=== PATIENT | female | born 1945 | race Caucasian/White ===

== ENCOUNTER 2020-11-14 14:39 | Observation (INO) ==
[2020-11-14 16:05] LABS: Basophils # (auto) 0.03 K/uL (0-0.2); Basophils % (auto) 0.3 %; Eosinophils # (auto) 0.33 K/uL (0-0.5); Eosinophils % (auto) 3.6 %; Hematocrit (blood only) 43.9 % (37-47); Hemoglobin 14.7 g/dL (12.0-16.0); Immature Granulocytes # (auto) 0.01 K/uL (0.00-0.02); Immature Granulocytes % (auto) 0.1 %; Lymphocytes # (auto) 1.95 K/uL (1.2-3.4); Lymphocytes % (auto) 21.1 %; Mean Corpuscular Hemoglobin 30.5 pg (25-34); Mean Corpuscular Hgb Conc 33.5 g/dL (32-36); Mean Corpuscular Volume 91.1 fL (80-100); Mean Platelet Volume 10.5 fL (7.4-10.4); Monocytes # (auto) 0.46 K/uL (0.11-0.59); Neutrophils # (auto) 6.46 K/uL (1.4-6.5); Neutrophils % (auto) 69.9 %; Platelet Count 366 K/uL (130-400); RDW Coefficient of Variation 13.4 % (11.5-14.5); RDW Standard Deviation 44.4 fL (36.4-46.3); Red Blood Count 4.82 M/uL (4.2-5.4); White Blood Count 9.24 K/uL (4.8-10.8)
[2020-11-14 16:23] LABS: Partial Thromboplastin Ratio 0.9; Partial Thromboplastin Time 23.9 Seconds (21.0-31.0)
[2020-11-14 16:25] LABS: Alanine Aminotransferase 29 U/L (12-78); Albumin Level 3.9 gm/dl (3.4-5.0); Aspartate Aminotransferase 16 U/L (15-37); BUN Creatinine Ratio 21.7 (10-20); Blood Urea Nitrogen 17 mg/dl (7-18); Calcium 9.8 mg/dl (8.5-10.1); Carbon Dioxide 31 mmol/L (21-32); Chloride 106 mmol/L (98-107); Creatinine Clr Calc Pharmacy 58.2 ml/min; Est GFR (African American) 84.2 ml/min; Est GFR (Non-African American) 72.6 ml/min; Glucose 99 mg/dl (70-99); Lipase 140 U/L (73-393); Potassium 3.8 mmol/L (3.5-5.1); Sodium 142 mmol/L (136-145)
[2020-11-14 16:30] LABS: Alkaline Phosphatase 61 U/L (45-117); Bilirubin,Total 0.3 mg/dl (0.2-1); Total Protein 7.9 gm/dl (6.4-8.2); Troponin I < 0.015 ng/ml (0-0.045)
--- NOTE | 2020-11-14 16:39 | XRay Report ---
XR chest 1V portable CLINICAL HISTORY: Chest Pain COMPARISON STUDY: May 17, 2015 FINDINGS: No pneumothorax. No pleural effusion. No large infiltrates or consolidative lesions are seen. Cardiomediastinal silhouette is within normal limits in size. No significant pulmonary vascular congestion.. Osseous structures: Mild degenerative changes of the spine. IMPRESSION: 1. No acute pulmonary process. ACT 112: Negative or not required by law. The above report was generated using voice recognition software. It may contain grammatical, syntax o r spelling errors. Electronically signed by: Meghan Ulloa DO 11/14/2020 4:37 PM
[2020-11-14] MEDS ORDERED: NITROGLYCERIN SL 0.4 MG/TAB TAB SL STA (17:01)
[2020-11-14] MEDS ORDERED: ASPIRIN CHEW 324 MG PO STA (17:01)
[2020-11-14] MEDS ORDERED: SODIUM CHLORIDE 0.9% 1000ML 1,000 ML IV SCH (17:15)
--- NOTE | 2020-11-14 17:56 | Electrocardiogram Report ---
Test Reason : Blood Pressure : / mmHG Vent. Rate : 069 BPM Atrial Rate : 069 BPM P-R Int : 146 ms QRS Dur : 088 ms QT Int : 422 ms P-R-T Axes : 076 016 029 degrees QTc Int : 452 ms Normal sinus rhythm Possible Left atrial enlargement Nonspecific ST abnormality Abnormal ECG When compared with ECG of 19-MAY-2015 06:55, T wave inversion no longer evident in Anterolateral leads QT has shortened Confirmed by Darryn Sanchez ([id number]) on 11/14/2020 5:56:19 PM Referred By: Confirmed By:Asim Sanchez
--- NOTE | 2020-11-14 18:09 | Emergency Department Note ---
History of Present Illness General Chief Complaint: Chest Pain Stated Complaint: CHEST PAIN Time Seen by Provider: 11/14/20 16:25 History of Present Illness Provider Complaint: chest pain Onset (ago): day(s) 2 Duration: intermittent Onset: during rest Pain Location: substernal Pain Radiation: LUE Severity: moderate Maximum Pain Intensity: 5 Current Pain Intensity: 1 Quality: + aching Relieved By: + nothing Exacerbated By: + nothing Context: no recent illness, no recent surgery, no recent immobilization, no recent travel and no history of DVT/PE Associated symptoms: no nausea, no vomiting, no diaphoresis, no dyspnea, no syncope, no palpitations, no fever, no cough and no leg swelling Home Medications Medication Instructions Recorded Confirmed Type paroxetine HCl 10 mg PO QAM #0 tab 05/21/15 11/14/20 History [place]-3 1 tab PO QAM 02/06/18 11/14/20 History biotin 5,000 mcg SUBLINGUAL QAM 02/06/18 11/14/20 History hydrochlorothiazide 1 tab PO QAM 02/06/18 11/14/20 History Lactobac 40-Bifido 3-S.thermop 1 cap PO QAM 11/14/20 11/14/20 History [Probiotic] aspirin [Aspir-81] 162 mg PO QAM 11/14/20 11/14/20 History cholecalciferol (vitamin D3) 125 mcg PO QAM 11/14/20 11/14/20 History [Vitamin D3] zinc sulfate 25 mg PO QAM 11/14/20 11/14/20 History Allergies Allergy/AdvReac Type Severity Reaction Status Date / Time ibuprofen Allergy Unknown . Verified 11/14/20 16:59 propoxyphene AdvReac Unknown SEVERE Verified 11/14/20 16:59 NAUSEA AND VOMITING tramadol AdvReac Unknown SEVERE Verified 11/14/20 16:59 VOMITING AND NAUESA Past Med/Surg History Medical History Anxiety Arthritis of right hip Broken heart syndrome Chronic back pain Diabetes Hypertension Hypertension Osteoarthritis Right hip pain Takotsubo syndrome Surgical History H/O total hip arthroplasty L History of bilateral tubal ligation History of cardiac cath 2017, NO STENTS @ [facility] FOLLOWS W DR. FARLEY History of section History of colonoscopy History of tooth extraction WISDOM TEETH Hx of cataract surgery LEFT Nausea and vomiting after administration of anesthetic agent Social History Smoking Status: Never smoker Second Hand Exposure: No; Hx Alcohol Use: No Hx Substance Use: No Preferred Language: Greenlandic Communication Ability: Effective Bleach Packer Required: No Beliefs That Will Affect Care: None Current Living Situation: Spouse Feels Safe at Home: Yes Assistive Devices: None Review of Systems A total of 10 systems reviewed and were otherwise negative Physical Exam Vital Signs Vital Signs - 24 hr 11/14/20 14:43 11/14/20 16:58 11/14/20 17:19 Temperature 36.9 C Temperature Source Temporal Artery Scan Pulse Rate 69 Pulse Rate [Apical] 70 69 Pulse Rhythm Regular Pulse Strength Normal Respiratory Rate 20 18 16 Respiratory Effort / Characteristics Non-Labored Spontaneous Respiratory Depth Normal Respiratory Pattern Regular Blood Pressure 183/99 H Blood Pressure [Left Arm] 175/88 H 219/104 H Blood Pressure Mean 127 Blood Pressure Mean [Left Arm] 117 142 Blood Pressure Position Sitting Blood Pressure Position [Left Arm] Sitting Pulse Oximetry 98 99 Oxygen Delivery Method Room Air Room Air Sepsis Recent Fever Within 48 Hours No Sepsis New/Unexplained Change in Mental Status N/A Sepsis Action Taken by Nursing No Action Required Physical Exam GENERAL: He is oriented to person, place, and time. He appears well-developed and well-nourished. He does not appear distressed. HENT: Exam performed. - Head: Normocephalic and atraumatic. - Right Ear: External ear normal. No mastoid tenderness. - Left Ear: External ear normal. No mastoid tenderness. - Mouth/Throat: The oropharynx is clear and moist. No trismus in the jaw. No dental abscesses or uvula swelling. No oropharyngeal exudate or tonsillar a bscesses. EYES: Conjunctivae and EOM are normal. Pupils are equal, round, and reactive to light. Right eye exhibits no discharge. Left eye exhibits no discharge. No scleral icterus. NECK: Normal range of motion. Neck supple. No JVD present. No spinous process tenderness present. No carotid bruit present. No rigidity. No tracheal deviation and normal range of motion present. No Brudzinski's sign and no Kernig's sign noted. CV: Normal rate, regular rhythm, normal heart sounds and intact distal pulses. There is no peripheral edema. Palpable radial pulses bue. PULM/CHEST: Effort normal and breath sounds normal. No respiratory distress. No stridor. He has no wheezes. He has no rales. - Chest Wall: He exhibits no tenderness. ABD: The abdomen is soft. Bowel sounds are normal. He has no distension. No mass is present. There is no tenderness. There is no rebound, no guarding, no Garcia's sign and no tenderness at McBurney's point. Rovsig negative. MUSC/SKEL: Normal range of motion. There is no peripheral edema, tenderness or deformity. LYMPH: No cervical adenopathy. NEURO: He is alert and oriented to person, place, and time. He has normal strength. No cranial nerve deficit or sensory deficit. Coordination and gait normal. GCS eye subscore is 4. GCS verbal subscore is 5. GCS motor subscore is 6. Cerebellar tests wnl. SKIN: Skin is warm and dry. He is not diaphoretic. PSYCH: He has a normal mood and affect. Behavior is normal. Judgment and thought content normal. Course Course 1625: The patient was evaluated in room A12. A complete history and physical exam was performed Cardiac monitoring: An order was placed for continuous cardiac monitoring. The monitor shows a rate of 70 with sinus rhythm 1700: Vital signs stable. Labs and imaging within normal limits. Patient will be admitted to the [facility] team for chest pain rule out ACS. Administered Medications Sodium Chloride (Nss 1000ml) 1,000 mls @ 125 mls/hr IV .Q8H [facility] Stop: 12/14/20 17:14 Last Admin: 11/14/20 17:16 Dose: 125 mls/hr Documented by: [id number] Discontinued Medications Aspirin (Aspirin Chew 324 Mg) 324 mg PO NOW STA Stop: 11/14/20 17:02 Last Admin: 11/14/20 17:12 Dose: 324 mg Documented by: [id number] Nitroglycerin (Nitroglycerin Sl 0.4 Mg/Tab Tab) 0.4 mg SL NOW STA Stop: 11/14/20 17:02 Last Admin: 11/14/20 17:12 Dose: 0.4 mg Documented by: [id number] Medical Decision Making Laboratory Data Result diagrams: 11/14/20 15:50 11/14/20 15:50 Labs: Lab Results 11/14/20 11/14/20 11/14/20 Range/Units 15:50 15:50 15:50 WBC 9.24 (4.8-10.8) K/uL RBC 4.82 (4.2-5.4) M/uL Hgb 14.7 (12.0-16.0) g/dL Hct 43.9 (37-47) % MCV 91.1 (80-100) fL MCH 30.5 (25-34) pg MCHC 33.5 (32-36) g/dL RDW Std Deviation 44.4 (36.4-46.3) fL RDW Coeff of Rosio 13.4 (11.5-14.5) % Plt Count 366 (130-400) K/uL MPV 10.5 H (7.4-10.4) fL Immature Gran % (Auto) 0.1 % Neut % (Auto) 69.9 % Lymph % (Auto) 21.1 % [place] % (Auto) 5.0 % Eos % (Auto) 3.6 % Baso % (Auto) 0.3 % Neut # (Auto) 6.46 (1.4-6.5) K/uL Lymph # (Auto) 1.95 (1.2-3.4) K/uL [place] # (Auto) 0.46 (0.11-0.59) K/uL Eos # (Auto) 0.33 (0-0.5) K/uL Baso # (Auto) 0.03 (0-0.2) K/uL Immature Gran # (Auto) 0.01 (0.00-0.02) K/uL APTT 23.9 (21.0-31.0) Seconds PTT Ratio 0.9 Sodium 142 (136-145) mmol/L Potassium 3.8 (3.5-5.1) mmol/L Chloride 106 (98-107) mmol/L Carbon Dioxide 31 (21-32) mmol/L Anion Gap 5.0 (3-11) BUN 17 (7-18) mg/dl Creatinine 0.80 (0.6-1.2) mg/dl Est Cr Clr Drug Dosing 58.2 ml/min Est GFR ( Amer) 84.2 ml/min Est GFR (Non-Af Amer) 72.6 ml/min BUN/Creatinine Ratio 21.7 H (10-20) Glucose 99 (70-99) mg/dl Calcium 9.8 (8.5-10.1) mg/dl Total Bilirubin 0.3 (0.2-1) mg/dl AST 16 (15-37) U/L ALT 29 (12-78) U/L Alkaline Phosphatase 61 (45-117) U/L Troponin I < 0.015 (0-0.045) ng/ml Total Protein 7.9 (6.4-8.2) gm/dl Albumin 3.9 (3.4-5.0) gm/dl Globulin 4.0 (2.5-4.0) gm/dl Albumin/Globulin Ratio 1.0 (0.9-2) Lipase 140 (73-393) U/L COVID-19 Eval Order 11/14/20 Range/Units 17:20 WBC (4.8-10.8) K/uL RBC (4.2-5.4) M/uL Hgb (12.0-16.0) g/dL Hct (37-47) % MCV (80-100) fL MCH (25-34) pg MCHC (32-36) g/dL RDW Std Deviation (36.4-46.3) fL RDW Coeff of Rosio (11.5-14.5) % Plt Count (130-400) K/uL MPV (7.4-10.4) fL Immature Gran % (Auto) % Neut % (Auto) % Lymph % (Auto) % [place] % (Auto) % Eos % (Auto) % Baso % (Auto) % Neut # (Auto) (1.4-6.5) K/uL Lymph # (Auto) (1.2-3.4) K/uL [place] # (Auto) (0.11-0.59) K/uL Eos # (Auto) (0-0.5) K/uL Baso # (Auto) (0-0.2) K/uL Immature Gran # (Auto) (0.00-0.02) K/uL APTT (21.0-31.0) Seconds PTT Ratio Sodium (136-145) mmol/L Potassium (3.5-5.1) mmol/L Chloride (98-107) mmol/L Carbon Dioxide (21-32) mmol/L Anion Gap (3-11) BUN (7-18) mg/dl Creatinine (0.6-1.2) mg/dl Est Cr Clr Drug Dosing ml/min Est GFR ( Amer) ml/min Est GFR (Non-Af Amer) ml/min BUN/Creatinine Ratio (10-20) Glucose (70-99) mg/dl Calcium (8.5-10.1) mg/dl Total Bilirubin (0.2-1) mg/dl AST (15-37) U/L ALT (12-78) U/L Alkaline Phosphatase (45-117) U/L Troponin I (0-0.045) ng/ml Total Protein (6.4-8.2) gm/dl Albumin (3.4-5.0) gm/dl Globulin (2.5-4.0) gm/dl Albumin/Globulin Ratio (0.9-2) Lipase (73-393) U/L COVID-19 Eval Order Covid19 at [facility] Imaging Data Chest x-ray: Radiologist's impression: Chest X-Ray 11/14/20 15:49 XR chest 1V portable CLINICAL HISTORY: Chest Pain COMPARISON STUDY: May 17, 2015 FINDINGS: No pneumothorax. No pleural effusion. No large infiltrates or consolidative lesions are seen. Cardiomediastinal silhouette is within normal limits in size. No significant pulmonary vascular congestion.. Osseous structures: Mild degenerative changes of the spine. IMPRESSION: 1. No acute pulmonary process. ACT 112: Negative or not required by law. The above report was generated using voice recognition software. It may contain grammatical, syntax or spelling errors. Electronically signed by: Meghan Ulloa DO 11/14/2020 4:37 PM ECG Data Indication: chest pain Rate (beats per minute): 69 Rhythm: normal sinus Findings: no ST depression, no ST elevation and no prolonged QT MDM Narrative 1625: The patient was evaluated in room A12. A complete history and physical exam was performed Cardiac monitoring: An order was placed for continuous cardiac monitoring. The monitor shows a rate of 70 with sinus rhythm 1700: Vital signs stable. Labs and imaging within normal limits. Patient will be admitted to the [facility] team for chest pain rule out ACS. Impression & Plan Chest pain Discharge Plan Visit Data Chief Complaint: Chest Pain Stated Complaint: CHEST PAIN ED Provider: Roland Zhu Discharge Problem: Chest pain Patient Disposition: Being Evaluated by Hospitalist Forms Stand Alone Forms: [facility] Prescriptions Prescriptions: No Action paroxetine HCl 10 mg Tablet 10 mg PO QAM Qty: 0 RF: 0 hydrochlorothiazide 25 mg Tablet 1 tab PO QAM RF: 0 [place]-3 350 mg-235 mg- 90 mg-597 mg Capsule,Delayed Release(Dr/Ec) 1 tab PO QAM RF: 0 biotin 5,000 mcg Tablet, Sublingual 5,000 mcg SUBLINGUAL QAM RF: 0 zinc sulfate 25 mg zinc (110 mg) Tablet 25 mg PO QAM RF: 0 aspirin [Aspir-81] 81 mg Tablet,Delayed Release (Dr/Ec) 162 mg PO QAM RF: 0 cholecalciferol (vitamin D3) [Vitamin D3] 125 mcg (5,000 unit) Tablet 125 mcg PO QAM RF: 0 Probiotic 100 billion cell Capsule 1 cap PO QAM RF: 0 Referrals Referrals: Val Meade MD [Primary Care Provider] - Discharge Problem: Chest pain Qualifiers: Chest pain type: unspecified Qualified Code(s): R07.9 - Chest pain, unspecified
[2020-11-14] MEDS ORDERED: LABETALOL HCL IV 5 MG/ML 20ML IV STA (18:12)
[2020-11-14] MEDS ORDERED: hydrALAZINE HCL 25 MG TAB PO STA (18:17)
--- NOTE | 2020-11-14 18:26 | History & Physical Report ---
Date of Service November 14, 2020 Assessment & Plan (1) Chest pain: Rule out ACS Hypertensive urgency, Uncontrolled HTN Left sided chest pain, radiating towards left scapula and left arm -on and off for past 1-2 days -no shortness of breath, no diaphoresis, + nausea d/t pain -found to be hypertensive in ER, SBP> 200 -received ASA, and nitro -will give labetalol and IV hydralazine prn, admit to PCU for close hemodynamic monitoring, Tele -initial troponin negative, cont. to cycle -EKG w/o sign. ST changes, will repeat -order Echo -hx of Takotsubo [employer] yrs ago, resolved, followed w/ Dr. Mejia at that time -for HTN on HCTZ, PCP Dr. Meade (pt reports haven't seen by PCP in a while) -cont. HCTZ, labetalol, hydralazine prn -check Fasting lipid panel, A1c -NPO after MN -Cardiology consult Anxiety - cont. Paxil DVT ppx: SCDs Code: Full History of Present Illness Chief Complaint: chest pain Primary Care Provider: Val Meade MD Pt is a 75 y/o F w/ hx HTN, anxiety, hx of takotsubo nonischemic cardiomyopathy (resolved, followed with dr. Mejia) who now presents with chest pain. Pt reports she has been having chest pain on and off for past 1 to 2 days. Chest pain is located at her left side, sometimes radiating to her left scapula and left arm. Denies any shortness of breath or diaphoresis however she does report nausea due to pain. She does not recall doing anything particular when she first noticed her chest discomfort. 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 However she did not notice it was bothering her. She did not notice if anything was making it better or worse, often she will have chest discomfort even at rest. She is a non-smoker. Reports no history of heart disease in her parents or close family. In the ER received aspirin and nitro. Noted that her blood pressure was quite elevated, systolic blood pressure over 200. EKG without significant ST changes. Chest x-ray unremarkable. Initial troponin negative. Prior to her chest pain, patient did not notice any changes in her health status, no fevers, chills, shortness of breath, cough, sick contacts, abdominal pain. Reports that she follows with Dr. Meade for hypertension, however have not seen her in a while, currently taking HCTZ 25 mg daily for that. She does have history of Takotsubo, several years ago, which resolved, at that time was followed by Dr. Mejia with [facility] cardiology. Allergies Allergy/AdvReac Type Severity Reaction Status Date / Time ibuprofen Allergy Unknown . Verified 11/14/20 16:59 propoxyphene AdvReac Unknown SEVERE Verified 11/14/20 16:59 NAUSEA AND VOMITING tramadol AdvReac Unknown SEVERE Verified 11/14/20 16:59 VOMITING AND NAUESA Home Medications Medication Instructions Recorded Confirmed Type paroxetine HCl 10 mg PO QAM #0 tab 05/21/15 11/14/20 History [place]-3 1 tab PO QAM 02/06/18 11/14/20 History biotin 5,000 mcg SUBLINGUAL QAM 02/06/18 11/14/20 History hydrochlorothiazide 1 tab PO QAM 02/06/18 11/14/20 History Lactobac 40-Bifido 3-S.thermop 1 cap PO QAM 11/14/20 11/14/20 History [Probiotic] aspirin [Aspir-81] 162 mg PO QAM 11/14/20 11/14/20 History cholecalciferol (vitamin D3) 125 mcg PO QAM 11/14/20 11/14/20 History [Vitamin D3] zinc sulfate 25 mg PO QAM 11/14/20 11/14/20 History Past Med/Surg History Medical History Anxiety Arthritis of right hip Broken heart syndrome Chronic back pain Diabetes Hypertension Hypertension Osteoarthritis Right hip pain Takotsubo syndrome Surgical History H/O total hip arthroplasty L History of bilateral tubal ligation History of cardiac cath 2017, NO STENTS @ [facility] FOLLOWS W DR. MEJIA History of section History of colonoscopy History of tooth extraction WISDOM TEETH Hx of cataract surgery LEFT Nausea and vomiting after administration of anesthetic agent Family History Mother Dementia Father Epilepsy Social History Smoking Status: Never smoker Second Hand Exposure: No; Hx Alcohol Use: No Hx Substance Use: No Preferred Language: Ghanaian Communication Ability: Effective Animal Daycare Provider Required: No Beliefs That Will Affect Care: None Current Living Situation: Spouse Feels Safe at Home: Yes Assistive Devices: None Review of Systems Review of Systems: All systems reviewed & are unremarkable except as noted in HPI & below Constitutional: no fever and no chills Eyes: no problem reported Ear, Nose, Mouth, Throat: no problem reported Respiratory: no cough and no dyspnea Cardiovascular: + chest pain; no palpitations and no edema Gastrointestinal: no abdominal pain, no nausea and no vomiting Genitourinary: no dysuria and no problem reported Musculoskeletal: no problem reported Integumentary: no problem reported Neurologic: no problem reported Psychiatric: no problem reported Endocrine: no problem reported Hematologic / Lymphatic: no problem reported Allergy / Immunological: no problem reported Physical Exam Constitutional: WD/WN, vitals as above obese Eyes: PERRL, conjunctivae normal, anicteric sclerae ENMT: external ear and nose normal, oropharynx normal Neck: normal visual inspection Respiratory: normal respiratory effort, lungs clear to auscultation no respiratory distress Auscultation: no crackles, no rhonchi and no wheezes Cardiovascular: RRR, no murmur, no edema Heart Sounds: normal S1 and normal S2; no murmur Chest (Breasts): Chest: normal inspection of chest Gastrointestinal (Abdomen): Inspection/Auscultation: abdomen normal to inspection and normal bowel sounds; abdomen not distended Percussion/Palpation: abdomen soft; abdomen nontender, no guarding and abdomen not rigid Musculoskeletal: no cyanosis or clubbing, extremities motor strength 5/5 Skin: no rashes, warm and dry Neurologic: PERRL, EOMI, accommodation nl, no face palsy, no dysarthria moves all extremities Psychiatric: A+Ox3, euthymic affect Genitourinary: no CVA tenderness Lymphatic: no cervical or axillary lymphadenopathy Results & Data Results & Data ([facility]) Vital Signs (Past 12 Hours) Vital Signs Temp Pulse Pulse Resp BP BP Pulse Ox 11/14/20 17:19 69 16 219/104 H 11/14/20 16:58 70 18 175/88 H 99 11/14/20 14:43 36.9 C 69 20 183/99 H 98 Laboratory Results 11/14/20 11/14/20 11/14/20 Range/Units 17:20 17:20 15:50 WBC (4.8-10.8) K/uL RBC (4.2-5.4) M/uL Hgb (12.0-16.0) g/dL Hct (37-47) % MCV (80-100) fL MCH (25-34) pg MCHC (32-36) g/dL RDW Std Deviation (36.4-46.3) fL RDW Coeff of Rosio (11.5-14.5) % Plt Count (130-400) K/uL MPV (7.4-10.4) fL Immature Gran % (Auto) % Neut % (Auto) % Lymph % (Auto) % [place] % (Auto) % Eos % (Auto) % Baso % (Auto) % Neut # (Auto) (1.4-6.5) K/uL Lymph # (Auto) (1.2-3.4) K/uL [place] # (Auto) (0.11-0.59) K/uL Eos # (Auto) (0-0.5) K/uL Baso # (Auto) (0-0.2) K/uL Immature Gran # (Auto) (0.00-0.02) K/uL APTT (21.0-31.0) Seconds PTT Ratio Sodium 142 (136-145) mmol/L Potassium 3.8 (3.5-5.1) mmol/L Chloride 106 (98-107) mmol/L Carbon Dioxide 31 (21-32) mmol/L Anion Gap 5.0 (3-11) BUN 17 (7-18) mg/dl Creatinine 0.80 (0.6-1.2) mg/dl Est Cr Clr Drug Dosing 58.2 ml/min Est GFR ( Amer) 84.2 ml/min Est GFR (Non-Af Amer) 72.6 ml/min BUN/Creatinine Ratio 21.7 H (10-20) Glucose 99 (70-99) mg/dl Calcium 9.8 (8.5-10.1) mg/dl Total Bilirubin 0.3 (0.2-1) mg/dl AST 16 (15-37) U/L ALT 29 (12-78) U/L Alkaline Phosphatase 61 (45-117) U/L Troponin I < 0.015 (0-0.045) ng/ml Total Protein 7.9 (6.4-8.2) gm/dl Albumin 3.9 (3.4-5.0) gm/dl Globulin 4.0 (2.5-4.0) gm/dl Albumin/Globulin Ratio 1.0 (0.9-2) Lipase 140 (73-393) U/L COVID-19 Eval Order Covid19 at [facility] SARS-CoV-2 (PCR) Pending 11/14/20 11/14/20 Range/Units 15:50 15:50 WBC 9.24 (4.8-10.8) K/uL RBC 4.82 (4.2-5.4) M/uL Hgb 14.7 (12.0-16.0) g/dL Hct 43.9 (37-47) % MCV 91.1 (80-100) fL MCH 30.5 (25-34) pg MCHC 33.5 (32-36) g/dL RDW Std Deviation 44.4 (36.4-46.3) fL RDW Coeff of Rosio 13.4 (11.5-14.5) % Plt Count 366 (130-400) K/uL MPV 10.5 H (7.4-10.4) fL Immature Gran % (Auto) 0.1 % Neut % (Auto) 69.9 % Lymph % (Auto) 21.1 % [place] % (Auto) 5.0 % Eos % (Auto) 3.6 % Baso % (Auto) 0.3 % Neut # (Auto) 6.46 (1.4-6.5) K/uL Lymph # (Auto) 1.95 (1.2-3.4) K/uL [place] # (Auto) 0.46 (0.11-0.59) K/uL Eos # (Auto) 0.33 (0-0.5) K/uL Baso # (Auto) 0.03 (0-0.2) K/uL Immature Gran # (Auto) 0.01 (0.00-0.02) K/uL APTT 23.9 (21.0-31.0) Seconds PTT Ratio 0.9 Sodium (136-145) mmol/L Potassium (3.5-5.1) mmol/L Chloride (98-107) mmol/L Carbon Dioxide (21-32) mmol/L Anion Gap (3-11) BUN (7-18) mg/dl Creatinine (0.6-1.2) mg/dl Est Cr Clr Drug Dosing ml/min Est GFR ( Amer) ml/min Est GFR (Non-Af Amer) ml/min BUN/Creatinine Ratio (10-20) Glucose (70-99) mg/dl Calcium (8.5-10.1) mg/dl Total Bilirubin (0.2-1) mg/dl AST (15-37) U/L ALT (12-78) U/L Alkaline Phosphatase (45-117) U/L Troponin I (0-0.045) ng/ml Total Protein (6.4-8.2) gm/dl Albumin (3.4-5.0) gm/dl Globulin (2.5-4.0) gm/dl Albumin/Globulin Ratio (0.9-2) Lipase (73-393) U/L COVID-19 Eval Order SARS-CoV-2 (PCR) Medications Administered CXR IMPRESSION: 1. No acute pulmonary process. Code Status & VTE Plan VTE Prophylaxis Plan VTE Prophylaxis will be ordered: Yes (1) Chest pain Chest pain type: unspecified Qualified Code(s): R07.9 - Chest pain, unspecified
[2020-11-14] MEDS ORDERED: hydrALAZINE HCL 20 MG/ML VIAL IV PRN (22:08)
[2020-11-14] MEDS ORDERED: POLYETHYLENE (MIRALAX) 17 GM PACK PO PRN (22:08)
[2020-11-14] MEDS ORDERED: ACETAMINOPHEN 325 MG TAB PO PRN (22:08)
[2020-11-14] MEDS ORDERED: ONDANSETRON INJ 2 MG/ML 2 ML VIAL IV PRN (22:08)
[2020-11-14] MEDS ORDERED: NITROGLYCERIN SL 0.4 MG/TAB TAB SL PRN (22:08)
[2020-11-14] MEDS: HEPARIN SOD 5,000 UNIT/0.5 ML VIAL SQ SCH (23:31)
[2020-11-15 04:22] LABS: Hematocrit (blood only) 40.3 % (37-47); Hemoglobin 13.3 g/dL (12.0-16.0); Mean Corpuscular Hemoglobin 30.2 pg (25-34); Mean Corpuscular Volume 91.4 fL (80-100); Mean Platelet Volume 10.4 fL (7.4-10.4); Platelet Count 339 K/uL (130-400); RDW Coefficient of Variation 13.5 % (11.5-14.5); Red Blood Count 4.41 M/uL (4.2-5.4)
[2020-11-15 04:39] LABS: BUN Creatinine Ratio 23.5 (10-20); Blood Urea Nitrogen 18 mg/dl (7-18); Calcium 9.1 mg/dl (8.5-10.1); Carbon Dioxide 30 mmol/L (21-32); Chloride 109 mmol/L (98-107); Creatinine Clr Calc Pharmacy 59.6 ml/min; Est GFR (African American) 86.8 ml/min; Est GFR (Non-African American) 74.9 ml/min; Glucose 106 mg/dl (70-99); Potassium 3.4 mmol/L (3.5-5.1); Sodium 140 mmol/L (136-145)
[2020-11-15 04:43] LABS: Chol HDL Ratio 5; Cholesterol 183 mg/dl (0-200); HDL Cholesterol 36 mg/dl; LDL Cholesterol Calculated 98 mg/dl; Triglycerides 243 mg/dl (0-150); Troponin I < 0.015 ng/ml (0-0.045); VLDL Cholesterol 49 mg/dl
[2020-11-15] MEDS: HEPARIN SOD 5,000 UNIT/0.5 ML VIAL SQ SCH ×2 (06:36→13:04)
[2020-11-15 07:27] LABS: Estimated Average Glucose 131 mg/dl; Hemoglobin A1C 6.2 % (4.5-5.6)
[2020-11-15] MEDS ORDERED: ASPIRIN 81 MG ECTAB PO SCH (09:00)
[2020-11-15] MEDS ORDERED: PARoxetine HCL 10 MG TAB PO SCH (09:00)
[2020-11-15] MEDS ORDERED: hydroCHLOROthiazide 25 MG TAB PO SCH (09:00)
--- NOTE | 2020-11-15 09:42 | Electrocardiogram Report ---
Test Reason : Blood Pressure : / mmHG Vent. Rate : 064 BPM Atrial Rate : 064 BPM P-R Int : 158 ms QRS Dur : 094 ms QT Int : 440 ms P-R-T Axes : 074 020 043 degrees QTc Int : 454 ms Normal sinus rhythm Possible Left atrial enlargement Incomplete right bundle branch block Nonspecific T wave abnormality Abnormal ECG When compared with ECG of 14-NOV-2020 14:48, No significant change was found Confirmed by Darryn Sanchez ([id number]) on 11/15/2020 9:41:31 AM Referred By: REFERRED SELF Confirmed By:Asim Sanchez
--- NOTE | 2020-11-15 12:39 | Cardiology Consultation ---
Date of Consultation November 15, 2020 Assessment & Plan (1) Chest pain: EKG x 2, troponin x 3 negative. Unable to walk on treadmill due to hip pain from arthritis. Proceed with dobutamine stress echo. (2) Hypertension: add losartan 25 mg to HCTZ 25 mg. (3) Diabetes: LDL =98 mg/dl. Given DM with Hgb A1C of 6.2%, recommend atorvastatin 10 mg daily. History of Present Illness Attending Physician: Rikki Hayden MD History of Present Illness Keesha Rao is a 75 year old female seen in cardiology consultation for the evaluation of chest pain and high blood pressure. Patient with several days of waxing and waning left chest and arm pain/ left shoulder blade pain. 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 Discomfort completely resolved now. EKG x 2 , Troponin I x 3 all normal. Resting echo with normal wall motion. History is notable for left apical ballooning syndrome cardiomyopathy in 2014 with negative cardiac catheterization then. Notes pedal edema . Recently ate a lot of salty potato chips. No family history of ischemic heart disease. Allergies Allergy/AdvReac Type Severity Reaction Status Date / Time ibuprofen Allergy Unknown . Verified 11/14/20 16:59 propoxyphene AdvReac Unknown SEVERE Verified 11/14/20 16:59 NAUSEA AND VOMITING tramadol AdvReac Unknown SEVERE Verified 11/14/20 16:59 VOMITING AND NAUESA Home Medications Medication Instructions Recorded Confirmed Type paroxetine HCl 10 mg PO QAM #0 tab 05/21/15 11/14/20 History Eagan-3 1 tab PO QAM 02/06/18 11/14/20 History biotin 5,000 mcg SUBLINGUAL QAM 02/06/18 11/14/20 History hydrochlorothiazide 1 tab PO QAM 02/06/18 11/14/20 History Lactobac 40-Bifido 3-S.thermop 1 cap PO QAM 11/14/20 11/14/20 History [Probiotic] aspirin [Aspir-81] 162 mg PO QAM 11/14/20 11/14/20 History cholecalciferol (vitamin D3) 125 mcg PO QAM 11/14/20 11/14/20 History [Vitamin D3] zinc sulfate 25 mg PO QAM 11/14/20 11/14/20 History Patient History Medical History Anxiety Arthritis of right hip Broken heart syndrome Chronic back pain Diabetes Hypertension Hypertension Osteoarthritis Right hip pain Takotsubo syndrome Surgical History H/O total hip arthroplasty L History of bilateral tubal ligation History of cardiac cath 2017, NO STENTS @ [facility] FOLLOWS W DR. FARLEY History of section History of colonoscopy History of tooth extraction WISDOM TEETH Hx of cataract surgery LEFT Nausea and vomiting after administration of anesthetic agent Family History Mother Dementia Father Epilepsy Social History Smoking Status: Never smoker Second Hand Exposure: No; Do You Dip or Chew Tobacco: No; Tobacco Cessation Education Requested by Patient: No Hx Alcohol Use: Yes Alcohol type: beer, wine and hard liquor Hx Substance Use: No Preferred Language: Turkmen Communication Ability: Effective Market Master Required: No Beliefs That Will Affect Care: None Current Living Situation: Spouse Other Information That Helps Us Care for You: No Feels Safe at Home: Yes Safety Concerns: Feels Safe At This Time Assistive Devices: None Review of Systems Review of Systems: All systems reviewed & are unremarkable except as noted in HPI & below Physical Exam Physical Exam: Temp Pulse Resp BP Pulse Ox 36.8 C 64 19 165/87 H 97 11/15/20 11:58 11/15/20 11:58 11/15/20 11:58 11/15/20 11:58 11/15/20 11:58 Constitutional: WD/WN, vitals as above Respiratory: normal respiratory effort, lungs clear to auscultation Cardiovascular: RRR, no murmur, no edema Gastrointestinal (Abdomen): normal bowel sounds, soft, nontender, no hepatosplenomegaly Neurologic: PERRL, EOMI, accommodation nl, no face palsy, no dysarthria Results & Data ([facility]) Vital Signs (Past 12 Hours) Vital Signs Temp Pulse Pulse Resp BP Pulse Ox 11/15/20 11:58 36.8 C 64 19 165/87 H 97 11/15/20 09:15 58 L 11/15/20 07:30 36.8 C 73 20 151/90 H 96 11/15/20 03:13 36.8 C 65 18 148/82 H 96 Laboratory Results Cardiac Enzymes 11/14/20 11/14/20 11/15/20 Range/Units 15:50 22:36 03:55 AST 16 (15-37) U/L Troponin I < 0.015 < 0.015 < 0.015 (0-0.045) ng/ml Coagulation 11/14/20 Range/Units 15:50 APTT 23.9 (21.0-31.0) Seconds Lipids 11/15/20 Range/Units 03:55 Triglycerides 243 H (0-150) mg/dl Cholesterol 183 (0-200) mg/dl HDL Cholesterol 36 mg/dl Cholesterol/HDL Ratio 5 CBC 11/14/20 11/15/20 Range/Units 15:50 03:55 WBC 9.24 8.40 (4.8-10.8) K/uL RBC 4.82 4.41 (4.2-5.4) M/uL Hgb 14.7 13.3 (12.0-16.0) g/dL Hct 43.9 40.3 (37-47) % Plt Count 366 339 (130-400) K/uL Neut # (Auto) 6.46 (1.4-6.5) K/uL Lymph # (Auto) 1.95 (1.2-3.4) K/uL Andrew # (Auto) 0.46 (0.11-0.59) K/uL Eos # (Auto) 0.33 (0-0.5) K/uL Baso # (Auto) 0.03 (0-0.2) K/uL Comprehensive Metabolic Panel 11/14/20 11/15/20 Range/Units 15:50 03:55 Sodium 142 140 (136-145) mmol/L Potassium 3.8 3.4 L (3.5-5.1) mmol/L Chloride 106 109 H (98-107) mmol/L Carbon Dioxide 31 30 (21-32) mmol/L BUN 17 18 (7-18) mg/dl Creatinine 0.80 0.78 (0.6-1.2) mg/dl Glucose 99 106 H (70-99) mg/dl Calcium 9.8 9.1 (8.5-10.1) mg/dl AST 16 (15-37) U/L ALT 29 (12-78) U/L Alkaline Phosphatase 61 (45-117) U/L Total Protein 7.9 (6.4-8.2) gm/dl Albumin 3.9 (3.4-5.0) gm/dl Intake and Output 11/14/20 11/15/20 11/15/20 22:59 06:59 14:59 Intake Total 1000 / 1000 Balance 1000 / 1000 Intake: IV 1000 / 1000 Sodium Chloride 0.9% 1000ML 1, 1000 / 1000 000 ml @ 125 mls/hr IV .Q8H [facility] Rx#:[id number] Other: Other Intake Source NPO Weight 74 kg 74 kg Weight Measurement Method Standing Scale Standing Scale (1) Chest pain Chest pain type: unspecified Qualified Code(s): R07.9 - Chest pain, unspecified
[2020-11-15] MEDS ORDERED: LOSARTAN POTASSIUM 25 MG TAB PO SCH (12:45)
[2020-11-15] MEDS ORDERED: ATORVASTATIN 10 MG TAB PO SCH (13:00)
[2020-11-15] MEDS ORDERED: ATROPINE SULFATE 0.1 MG/ML 10ML SYR IV ONE (14:00)
[2020-11-15] MEDS ORDERED: DOBUTamine HCL 12.5 MG/ML 20 ML VIAL IV ONE (14:00)
[2020-11-15] MEDS ORDERED: METOPROLOL TARTRATE 1 MG/ML VIAL IV ONE (14:00)
--- NOTE | 2020-11-15 14:35 | Communication Note ---
Date of Service: November 15, 2020 Nonischemic dobutamine stress echo. Stable for discharge. Continue HCTZ 25 mg. Losartan 25 mg added. No beta jovani as resting heart rate already in the 50s to 60s. Follow up with primary care provider.
--- NOTE | 2020-11-15 14:48 | Discharge Summary ---
Date of Service November 15, 2020 Admission HPI Per Admitting Provider Pt is a 75 y/o F w/ hx HTN, anxiety, hx of takotsubo nonischemic cardiomyopathy (resolved, followed with dr. Mejia) who now presents with chest pain. Pt reports she has been having chest pain on and off for past 1 to 2 days. Chest pain is located at her left side, sometimes radiating to her left scapula and left arm. Denies any shortness of breath or diaphoresis however she does report nausea due to pain. She does not recall doing anything particular when she first noticed her chest discomfort. 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 However she did not notice it was bothering her. She did not notice if anything was making it better or worse, often she will have chest discomfort even at rest. She is a non-smoker. Reports no history of heart disease in her parents or close family. In the ER received aspirin and nitro. Noted that her blood pressure was quite elevated, systolic blood pressure over 200. EKG without significant ST changes. Chest x-ray unremarkable. Initial troponin negative. Prior to her chest pain, patient did not notice any changes in her health status, no fevers, chills, shortness of breath, cough, sick contacts, abdominal pain. Reports that she follows with Dr. Meade for hypertension, however have not seen her in a while, currently taking HCTZ 25 mg daily for that. She does have history of Takotsubo, several years ago, which resolved, at that time was followed by Dr. Mejia with [facility] cardiology. Admission Exam Per Admitting Provider Constitutional: WD/WN, vitals as above obese Eyes: PERRL, conjunctivae normal, anicteric sclerae ENMT: external ear and nose normal, oropharynx normal Neck: normal visual inspection Respiratory: normal respiratory effort, lungs clear to auscultation no respiratory distress Auscultation: no crackles, no rhonchi and no wheezes Cardiovascular: RRR, no murmur, no edema Heart Sounds: normal S1 and normal S2; no murmur Chest (Breasts): Chest: normal inspection of chest Gastrointestinal (Abdomen): Inspection/Auscultation: abdomen normal to inspection and normal bowel sounds; abdomen not distended Percussion/Palpation: abdomen soft; abdomen nontender, no guarding and abdomen not rigid Musculoskeletal: no cyanosis or clubbing, extremities motor strength 5/5 Skin: no rashes, warm and dry Neurologic: PERRL, EOMI, accommodation nl, no face palsy, no dysarthria moves all extremities Psychiatric: A+Ox3, euthymic affect Genitourinary: no CVA tenderness Lymphatic: no cervical or axillary lymphadenopathy Principal Diagnosis Chest pain Discharge Exam General: A&Ox3 HENT: NCAT, MMM, EOMI Eyes: PERRLA Neck: Supple, normal range of motion CVS: normal rate and rhythm Resp: b/l good breath sounds Abdomen: Soft, ND/NT, +BS Extremities: No c/c/e Neuro: face symmetric, strength grossly equal, no focal deficit Skin: warm and dry, no rashes/lesions/errythema MSK: normal ROM, no joint swelling/erythema Discharge Data Allergies Allergy/AdvReac Type Severity Reaction Status Date / Time ibuprofen Allergy Unknown . Verified 11/14/20 16:59 propoxyphene AdvReac Unknown SEVERE Verified 11/14/20 16:59 NAUSEA AND VOMITING tramadol AdvReac Unknown SEVERE Verified 11/14/20 16:59 VOMITING AND NAUESA Consultations 11/14/20 17:06 ED Decision to Admit Stat 11/14/20 22:08 Consult Cardiology Routine Hospital Course (1) Chest pain: Rule out ACS Hypertensive urgency, Uncontrolled HTN Left sided chest pain, radiating towards left scapula and left arm -Patient presented with chest pain and hypertensive urgency. Cardiology was consulted. Patient had nonischemic dobutamine stress echo patient was discharged on losartan and Lipitor daily and will need to follow-up with cardiology. On the day of discharge patient was doing okay. Hemodynamically patient was doing better. Patient was discharged in stable condition. Anxiety - cont. Paxil Total Time Total Time Spent Total Time Spent (In Minutes): 35 Discharge Plan Discharge Items Patient Disposition: Home - Self-Care Reason For Visit: CP Discharge Diagnosis: Chest pain Hypertension Activity: Resume your previous activity Non-emergency contact: Primary Care Provider Call non-emergency contact if: your symptoms worsen Follow-up/Referrals: Val Meade MD [Primary Care Provider] - (Date & Time 11/21/2020 2:00 PM Provider Val Meade MD Department General Internal Medicine [place], [place] ) Diet: Heart Healthy Addtl Attending Provider Instructions: Follow-up with your primary care physician within 1 week. An appointment has been requested. Start taking losartan 25 mg daily and Lipitor 10 mg daily. Pending Studies at Discharge: No Stand-Alone Forms: [facility] [place], Smoking Cessation Medications and DC Order Prescriptions: New atorvastatin 10 mg Tablet 10 mg PO QAM 30 Days Qty: 30 RF: 0 losartan 25 mg Tablet 25 mg PO QAM 30 Days Qty: 30 RF: 0 Continued paroxetine HCl 10 mg Tablet 10 mg PO QAM Qty: 0 RF: 0 hydrochlorothiazide 25 mg Tablet 1 tab PO QAM RF: 0 Harbeson-3 350 mg-235 mg- 90 mg-597 mg Capsule,Delayed Release(Dr/Ec) 1 tab PO QAM RF: 0 biotin 5,000 mcg Tablet, Sublingual 5,000 mcg SUBLINGUAL QAM RF: 0 zinc sulfate 25 mg zinc (110 mg) Tablet 25 mg PO QAM RF: 0 aspirin [Aspir-81] 81 mg Tablet,Delayed Release (Dr/Ec) 162 mg PO QAM RF: 0 cholecalciferol (vitamin D3) [Vitamin D3] 125 mcg (5,000 unit) Tablet 125 mcg PO QAM RF: 0 Probiotic 100 billion cell Capsule 1 cap PO QAM RF: 0 Discharge Orders: Discharge Order (Routine); Ordered 11/15/20 Ordered By: Rikki Sandy/Other Patient Handouts: A1C Admission Data Admit Date/Time: 11/14/20 17:36 Attending Provider: Rikki Hayden Admit Provider: Mic Thao Primary Care Provider: Val Meade Other Providers: Mic Thao ; Morales Abdi
== END 2020-11-15 17:26 | disposition home or self-care (01) ==
LOC: ED 14:39 → 2S 14:39 → SUATTDRO 17:36 → 2S 21:45